=== PATIENT | male | born 1990 | race American Indian/Alaskan Native ===

== ENCOUNTER 2018-06-22 03:56 | Emergency (ER) | payer MEDICAID ==
[2018-06-22 05:00] LABS: Basophils % (Auto) 0.4 % (0.0-1.8); Eosinophils # (Auto) 0.1 K/mm3 (0.0-0.4); Eosinophils % (Auto) 0.8 % (0.0-4.3); Hematocrit 48.3 % (35.5-45.6); Hemoglobin 16.1 gm/dl (11.8-15.2); Lymphocytes % (Auto) 24.9 % (13.4-35.0); Mean Corpuscular HGB Conc 33 % (32-34); Mean Corpuscular Hemoglobin 29 pg (28-32); Mean Corpuscular Volume 87 fl (84-94); Monocytes # (Auto) 0.8 K/mm3 (0.0-0.8); Monocytes % (Auto) 6.8 % (0.0-7.3); Platelet Count 262 K/mm3 (140-440); Red Blood Count 5.57 M/mm3 (3.65-5.03)
[2018-06-22 05:18] LABS: Alanine Aminotransferase 36 units/L (7-56); Albumin 4.3 g/dL (3.9-5); BUN/Creatinine Ratio 12; Blood Urea Nitrogen 14 mg/dL (9-20); Calcium 9.6 mg/dL (8.4-10.2); Hemolysis Index 7; Lipase 37 units/L (13-60)
[2018-06-22 05:53] LABS: Bacteria,Urine 1+ /HPF (Negative); Bilirubin,Urine NEG (Negative); Blood,Urine NEG (Negative); Color,Urine Yellow (Yellow); Mucus,Urine 2+ /HPF; Protein,Urine <15 mg/dL mg/dL (Negative)
[2018-06-22] MEDS ORDERED: ALUM-MAG HYDROX-SIMETH 200-200-20MG/5ML PO ONE (06:24)
[2018-06-22] MEDS ORDERED: LIDOCAINE VISCOUS 2% PO ONE (06:24)
--- NOTE | 2018-06-22 06:28 | Emergency Department Report ---
ED Abdominal Pain HPI - General Chief Complaint: Abdominal Pain Stated Complaint: CHEST PAIN STOMACH PAIN RT SIDE PAIN Time Seen by Provider: 06/22/18 06:13 Source: patient Mode of arrival: Ambulatory Limitations: No Limitations - History of Present Illness Initial Comments: Patient is 27 years old male recently moved from [place]. Patient stated that he had history of hypertension, gastric ulcer, schizophrenia, bipolar and depression. Patient presented to the ER initially complaining of abdominal pain for 2 weeks. Patient stated that he went to [facility] last week and they did blood work and CT abdomen and pelvis and was told that everything is fine. Patient also had a CT abdomen and pelvis done here in this hospital on with no acute finding. Patient stated that his pain still there. Patient describes his pain as diffuse abdominal cramping associated with nausea but no vomiting. Patient denied any fever. As I'm explaining to the patient his lab results and the need to follow-up with a GI doctor as an outpatient for possible endoscopy and colonoscopy, patient stated that he is not safe to go home because he is thinking about killing himself or killing someone else. The patient denied any auditory or visual hallucination. Patient immediately brought on 1013 and mental health evaluation is requested. MD Complaint: abdominal pain Severity scale (0 -10): 10 - Related Data Previous Rx's Medication Instructions Recorded Last Taken Type Acetaminophen [Acetaminophen TAB] 650 mg PO Q4H PRN tablet 04/23/18 Unknown Rx Ondansetron [Zofran TAB] 4 mg PO Q8HR PRN #30 tablet 04/23/18 Unknown Rx clonazePAM 0.5 mg PO BID #60 tab.rapdis 04/23/18 Unknown Rx Allergies Allergy/AdvReac Type Severity Reaction Status Date / Time No Known Allergies Allergy Unverified 04/21/18 13:31 ED Review of Systems ROS: Stated complaint: CHEST PAIN STOMACH PAIN RT SIDE PAIN Other details as noted in HPI Comment: All other systems reviewed and negative Constitutional: denies: chills, fever Respiratory: denies: cough, orthopnea, shortness of breath, SOB with exertion Cardiovascular: denies: chest pain, palpitations, dyspnea on exertion Gastrointestinal: nausea. denies: abdominal pain, vomiting, diarrhea, constipation, hematemesis, melena, hematochezia Neurological: denies: headache, weakness, numbness, paresthesias, confusion, abnormal gait ED Past Medical Hx - Past Medical History Previous Medical History?: Yes Hx Hypertension: Yes Hx Heart Attack/AMI: No Hx Congestive Heart Failure: No Hx Diabetes: No Hx Deep Vein Thrombosis: No Hx Asthma: No Hx COPD: No - Surgical History Past Surgical History?: Yes Hx Coronary Stent: No Hx Pacemaker: No Hx Internal Defibrillator: No - Social History Smoking Status: Never Smoker Substance Use Type: Alcohol - Medications Home Medications: Home Medications Medication Instructions Recorded Confirmed Last Taken Type Acetaminophen [Acetaminophen TAB] 650 mg PO Q4H PRN tablet 04/23/18 Unknown Rx Ondansetron [Zofran TAB] 4 mg PO Q8HR PRN #30 tablet 04/23/18 Unknown Rx clonazePAM 0.5 mg PO BID #60 tab.rapdis 04/23/18 Unknown Rx ED Physical Exam - General Limitations: No Limitations General appearance: alert, in no apparent distress - Head Head exam: Present: atraumatic, normocephalic, normal inspection - ENT ENT exam: Present: normal exam, normal orophraynx, mucous membranes moist - Neck Neck exam: Present: normal inspection, full ROM. Absent: tenderness, meningismus, lymphadenopathy, thyromegaly - Respiratory Respiratory exam: Present: normal lung sounds bilaterally - Cardiovascular Cardiovascular Exam: Present: regular rate, normal rhythm, normal heart sounds - GI/Abdominal GI/Abdominal exam: Present: soft, normal bowel sounds. Absent: distended, tenderness, guarding, rebound, rigid, organomegaly, mass, bruit, pulsatile mass , hernia - Extremities Exam Extremities exam: Present: normal inspection, full ROM, normal capillary refill. Absent: pedal edema, joint swelling, calf tenderness - Back Exam Back exam: Present: normal inspection, full ROM. Absent: tenderness, CVA tenderness (R), CVA tenderness (L), muscle spasm, paraspinal tenderness, vertebral tenderness - Neurological Exam Neurological exam: Present: alert, oriented X3, CN II-XII intact, normal gait, reflexes normal - Psychiatric Psychiatric exam: Present: depressed, anxious, homicidal ideation, suicidal ideation - Skin Skin exam: Present: warm, intact, normal color ED Course Vital Signs 06/22/18 06/22/18 06/22/18 04:34 09:09 10:39 Temperature 99.1 F 97.5 F L Pulse Rate 120 H 67 Respiratory 18 18 18 Rate Blood Pressure 162/94 Blood Pressure 162/94 107/61 [Left] O2 Sat by Pulse 100 97 97 Oximetry ED Medical Decision Making - Lab Data Result diagrams: 06/22/18 04:46 06/22/18 04:46 - EKG Data -: EKG Interpreted by Me EKG shows normal: sinus rhythm Rate: normal - EKG Data Interpretation: no acute changes - Radiology Data Radiology results: report reviewed Referring Physician: DANIELA VILLANUEVA Patient Name: YULI SUN Date of : 1990 Sex: Male Report Date: 2018-06-22 Report Status: Finalized Findings [facility] [address] [place] [address] XRay Report Signed Patient: YULI SUN JR MR#: [id number] : 1990 Acct:[id number] Age/Sex: 27 / M ADM Date: 06/22/18 Loc: ED Attending Dr: Ordering Physician: DANIELA VILLANUEVA Date of Service: 06/22/18 Procedure(s): XR abd series w cxr 1V Accession Number(s): [id number] cc: DANIELA VILLANUEVA Fluoro Time In Minutes: FINAL REPORT EXAM: XR ABD SERIES W CXR 1V HISTORY: abdominal pain TECHNIQUE: A PA view of the chest was obtained along with three views of the abdomen and pelvis. FINDINGS: The chest reveals normal heart size and mediastinum. The lungs are clear. Pleural fluid is not seen. The bones and soft tissues are well maintained. The abdominal bowel gas pattern is normal. There is no evidence of mass effect or suspicious calcifications. The skeletal structures reveal spurring along the right iliac wing. IMPRESSION: No acute process in the chest. No acute process in the abdomen and pelvis. Transcribed By: RB Dictated By: ENDY MILAN MD Electronically Authenticated By: ENDY MILAN MD Signed Date/Time: 06/22/18707 DD/ 7 TD/TT: 06/22/18707 Critical care attestation.: If time is entered above; I have spent that time in minutes in the direct care of this critically ill patient, excluding procedure time. ED Disposition Clinical Impression: Abdominal pain, Suicidal ideation, Homicidal ideation Disposition: [id number]/TX-[id number] PSY HOSP/PSY UNIT Is pt being admited?: No Condition: Stable Referrals: PRIMARY CARE, [Primary Care Provider] - 3-5 Days
--- NOTE | 2018-06-22 07:09 | XRay Report ---
FINAL REPORT EXAM: XR ABD SERIES W CXR 1V HISTORY: abdominal pain TECHNIQUE: A PA view of the chest was obtained along with three views of the abdomen and pelvis. FINDINGS: The chest reveals normal heart size and mediastinum. The lungs are clear. Pleural fluid is not seen. The bones and soft tissues are well maintained. The abdominal bowel gas pattern is normal. There is no evidence of mass effect or suspicious calcifications. The skeletal structures reveal spurring along the right iliac wing. IMPRESSION: No acute process in the chest. No acute process in the abdomen and pelvis.
[2018-06-22 07:11] LABS: Amphetamine Screen,Urine PRESUMPTIVE NEGATIVE; Benzodiazepines Screen,Urine PRESUMPTIVE NEGATIVE; Cannabinoid Screen,Urine PRESUMPTIVE NEGATIVE; Cocaine Screen,Urine PRESUMPTIVE NEGATIVE; Methadone Screen,Urine PRESUMPTIVE NEGATIVE; Opiate Screen,Urine PRESUMPTIVE NEGATIVE
[2018-06-22] MEDS ORDERED: PROTONIX IV ONE (09:17)
[2018-06-22] MEDS ORDERED: TYLENOL PO ONE (18:17)
[2018-06-22] MEDS ORDERED: TYLENOL ONE (18:17)
[2018-06-23 00:58] VITALS: BP 100/53
== END 2018-06-23 03:30 ==
LOC: ED 03:56
DX: R10.9 Unspecified abdominal pain (principal); F20.9 Schizophrenia, unspecified; F31.9 Bipolar disorder, unspecified; I10 Essential (primary) hypertension
CPT/HCPCS: 36415; 74022; 80053; 80307; 81001; 83690; 85025; 93005; 93010; 96374; 99285; C9113; G0480; 80320

== ENCOUNTER 2018-07-16 20:42 | Emergency (ER) | payer MEDICAID ==
[2018-07-16 21:17] LABS: Hematocrit 47.8 % (35.5-45.6); Hemoglobin 15.7 gm/dl (11.8-15.2); Mean Corpuscular HGB Conc 33 % (32-34); Mean Corpuscular Hemoglobin 29 pg (28-32); Mean Corpuscular Volume 88 fl (84-94); Platelet Count 255 K/mm3 (140-440); Red Blood Count 5.45 M/mm3 (3.65-5.03); Red Cell Distribution Width 15.5 % (13.2-15.2)
[2018-07-16 21:36] LABS: BUN/Creatinine Ratio 9; Blood Urea Nitrogen 11 mg/dL (9-20); Calcium 9.6 mg/dL (8.4-10.2); Hemolysis Index 6
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
[2018-07-16 22:12] VITALS: BP 106/67
[2018-07-16] MEDS ORDERED: PEPCID PO ONE (22:36)
[2018-07-16] MEDS ORDERED: NORCO 5/325 PO ONE (22:36)
[2018-07-16] MEDS ORDERED: LIDOCAINE VISCOUS 2% PO ONE (22:37)
[2018-07-16] MEDS ORDERED: BENTYL PO ONE (22:37)
[2018-07-16] MEDS ORDERED: ALUM-MAG HYDROX-SIMETH 200-200-20MG/5ML PO ONE (22:37)
--- NOTE | 2018-07-16 23:53 | XRay Report ---
FINAL REPORT EXAM: XR ABDOMEN 2V HISTORY: Abd pain TECHNIQUE: Frontal view of the chest and frontal views of the abdomen and pelvis in the supine and upright positions Comparison: Abdominal series dated June 22, [address] abdomen and pelvis dated April 22, 2018 FINDINGS: The entirety of the lung apices are not imaged. There is bilateral hypoinflation. There is no evidence of focal infiltrate, pneumothorax or pleural fluid collection. The cardiac silhouette appears to be enlarged. This may be exaggerated by portable technique. The bowel gas pattern is nonobstructive with air in mildly distended loops of small bowel and colon. There is no evidence of pneumoperitoneum. IMPRESSION: 1. Pulmonary hypoinflation without evidence of an acute pulmonary process. 2. Nonobstructive bowel gas pattern. If there is a clinical suspicion of an acute intra-abdominal process, CT abdomen and pelvis may be helpful for further evaluation.
[2018-07-17 00:16] LABS: Alanine Aminotransferase 30 units/L (7-56); Albumin 4.6 g/dL (3.9-5); Lipase 25 units/L (13-60)
[2018-07-17 00:18] LABS: Bilirubin,Direct < 0.2 mg/dL (0-0.2)
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
== END 2018-07-17 01:04 | disposition home or self-care (01) ==
LOC: ED 20:42
DX: R10.9 Unspecified abdominal pain (principal); M79.671 Pain in right foot; I10 Essential (primary) hypertension; K21.9 Gastro-esophageal reflux disease without esophagitis
CPT/HCPCS: 36415; 74019; 80048; 80074; 83690; 85027; 99284

== ENCOUNTER 2018-11-05 08:55 | Emergency (ER) | payer MEDICAID, OTHER ==
[2018-11-05 09:08] VITALS: BP 146/87
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
[2018-11-05] MEDS ORDERED: PEPCID PO ONE (09:36)
[2018-11-05] MEDS ORDERED: TORADOL IM ONE (09:56)
== END 2018-11-05 10:24 | disposition home or self-care (01) ==
LOC: ED 08:55
DX: K21.9 Gastro-esophageal reflux disease without esophagitis (principal); R07.89 Other chest pain; R20.2 Paresthesia of skin; G90.50 Complex regional pain syndrome I, unspecified; F41.9 Anxiety disorder, unspecified; F32.9 Major depressive disorder, single episode, unspecified; I10 Essential (primary) hypertension; M10.9 Gout, unspecified
CPT/HCPCS: 96372; 99282; J1885

== ENCOUNTER 2019-01-17 04:03 | Emergency (ER) | payer SELFPAY ==
[2019-01-17] MEDS ORDERED: ASPIRIN PO ONE (04:24)
--- NOTE | 2019-01-17 04:53 | XRay Report ---
PROCEDURE: XR CHEST ROUTINE 2V TECHNIQUE: PA and lateral views of the chest were submitted. HISTORY: Chest Pain COMPARISONS: 04/21/2018 FINDINGS: The heart size and mediastinum appear normal. The lungs are not congested. Pleural fluid is not seen. The bones and soft tissues appear normal. IMPRESSION: No acute cardiopulmonary process.. This document is electronically signed by Christian Graves MD., January 17 2019 04:51:25 AM ET
[2019-01-17 04:55] LABS: Basophils # (Auto) 0.1 K/mm3 (0.0-0.1); Basophils % (Auto) 0.6 % (0.0-1.8); Eosinophils # (Auto) 0.2 K/mm3 (0.0-0.4); Eosinophils % (Auto) 2.2 % (0.0-4.3); Hemoglobin 16.2 gm/dl (11.8-15.2); Lymphocytes % (Auto) 32.2 % (13.4-35.0); Mean Corpuscular HGB Conc 33 % (32-34); Mean Corpuscular Volume 89 fl (84-94); Monocytes # (Auto) 0.5 K/mm3 (0.0-0.8); Monocytes % (Auto) 5.8 % (0.0-7.3); Platelet Count 248 K/mm3 (140-440); Red Blood Count 5.52 M/mm3 (3.65-5.03); Red Cell Distribution Width 15.1 % (13.2-15.2)
[2019-01-17 05:14] LABS: BUN/Creatinine Ratio 11; Blood Urea Nitrogen 13 mg/dL (9-20); Calcium 9.1 mg/dL (8.4-10.2); Hemolysis Index 30
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
[2019-01-17 08:18] LABS: Alanine Aminotransferase 22 units/L (7-56); Albumin 3.8 g/dL (3.9-5)
[2019-01-17 08:23] LABS: Bilirubin,Direct < 0.2 mg/dL (0-0.2)
[2019-01-17 08:44] LABS: Bilirubin,Urine NEG (Negative); Blood,Urine NEG (Negative); Color,Urine Straw (Yellow); Protein,Urine <15 mg/dL mg/dL (Negative); RBC,Urine < 1.0 /HPF (0.0-6.0); Urobilinogen,Urine < 2.0 mg/dL (<2.0); WBC,Urine < 1.0 /HPF (0.0-6.0)
--- NOTE | 2019-01-17 09:33 | Cat Scan Report ---
CT ABDOMEN PELVIS WITH CONTRAST: HISTORY: Left abdominal and flank pain, weight loss. COMPARISON: Noncontrast CT abdomen and pelvis dated 04/22/18. TECHNIQUE: Helical CT in 1.25mm intervals following IV contrast. Sagittal and coronal reconstructions. FINDINGS: Lung bases: Normal. Liver: Normal. Biliary system: Normal. Pancreas: Normal. Spleen: Normal. Kidneys/ureters/bladder: Normal. Adrenal glands: Normal. Aorta: Normal. Intestines: Normal. Appendix: Normal. Pelvic viscera: Normal. Ascites: None. Adenopathy: None. Musculoskeletal: Normal. IMPRESSION: Unremarkable CT scan of the abdomen and pelvis with contrast.
[2019-01-17 11:45] VITALS: BP 110/70
== END 2019-01-17 11:45 | disposition home or self-care (01) ==
LOC: ED 04:03
DX: R07.89 Other chest pain (principal); I10 Essential (primary) hypertension; R10.9 Unspecified abdominal pain; K21.9 Gastro-esophageal reflux disease without esophagitis
CPT/HCPCS: 36415; 71046; 74177; 80048; 80076; 81001; 82962; 83690; 84484; 85025; 85379; 93005; 93010; 99285; Q9967